=== PATIENT | female | born 1970 | race Caucasian/White ===

== ENCOUNTER 2019-05-24 14:34 | Emergency (ER) | payer OTHER ==
[~2019-05-24] VITALS: Ht 177.8 cm; Wt 68.0 kg
[~2019-05-24 14:34] MED LIST: CLON-379 PO; DIAZ10TA4 PO; DICL50TA11 PO; GABA300C16 PO; METH750T93 PO; PROP20TA4 PO; QUET200T PO; RANI150T35 PO; SERT50TA PO; TREX50 PO; [UNRECOGNIZED DRUG - CODE] PO
[2019-05-24 14:41] VITALS: Ht 177.8 cm; Wt 68.0 kg
[2019-05-24 15:50] VITALS: BP 133/72; PULSE 98; RESP 20
== END 2019-05-24 15:50 | disposition home or self-care (01) ==
LOC: E/R 14:34
DX: R55 Syncope and collapse (principal); F17.210 Nicotine dependence, cigarettes, uncomplicated
CPT/HCPCS: 93005